=== PATIENT | male | born 1930 | race Caucasian/White ===

== ENCOUNTER 2018-04-21 06:35 | Observation (INO) ==
[2018-04-21] MEDS ORDERED: SALINE FLUSH 10ml SYRINGE IVF PRN (07:08)
[2018-04-21] MEDS ORDERED: NS 1,000 ML IV ONE (07:08)
[2018-04-21] MEDS ORDERED: ORPHENADRINE 60 MG/2 ML INJECTION IV ONE (07:08)
[2018-04-21] MEDS ORDERED: DiltiaZEM 25 MG/5 ML INJECTION IVP ONE (07:08)
[2018-04-21] MEDS ORDERED: FentaNYL 250 MCG/5 ML INJECTION IVP ONE (07:08)
[2018-04-21] MEDS ORDERED: ONDANSETRON 4 MG/2 ML INJECTION IVP ONE (07:12)
--- NOTE | 2018-04-21 07:17 | Emergency Department Report ---
Back Pain HPI - General Chief Complaint: Back Pain/Injury Stated Complaint: lower back pain Time Seen by Provider: 04/21/18 07:07 - History of Present Illness HPI Narrative: 88-year-old gentleman presents mainly with back pain. Back pain began approximately 3 weeks ago when he fell. However he had no direct injury to the back, just strained it. He did see his primary care provider, had a CT and an MRI ordered. However he is not result yet. This morning he presents because his back is hurting, woke him out of a deep sleep. Rates it at 7 out of 10. Incidentally on initial eval it is discovered that he is in atrial fibrillation with RVR. On further questioning, he does have a history of atrial fibrillation. He does take metoprolol for rate control. He has not missed any doses. No acute shortness of breath or chest pain. - Related Data Home Medications Medication Instructions Recorded Confirmed Acetaminophen [Acetaminophen Extra 500 mg PO 04/08/18 04/21/18 Strength] Amcinonide 1 applicatio TP DAILY PRN 04/08/18 04/21/18 Aspirin [Adult Aspirin] 81 mg PO DAILY 04/08/18 04/21/18 Cetirizine HCl [Zyrtec] 10 mg PO DAILY 04/08/18 04/21/18 EPINEPHrine Pen [Epipen] 0.3 mg IM PRN PRN 04/08/18 04/21/18 Fiber 8 gm PO 04/08/18 04/21/18 Fluticasone Nasal [place] [Flonase] 1 spray EA NOSTRIL DAILY 04/08/18 04/21/18 Lutein 5 mg PO BID 04/08/18 04/21/18 Metoprolol Tartrate 25 mg PO 04/08/18 04/21/18 Metoprolol Tartrate 50 mg PO QAM 04/08/18 04/21/18 Nitroglycerin 0.4 mg PO Q5MIN3 PRN 04/08/18 04/21/18 Olopatadine 0.1% Eye Drops-Bid 1 drop EACH EYE PRN PRN 04/08/18 04/21/18 [Patanol] Omeprazole [Prilosec] 20 mg PO BID 04/08/18 04/21/18 Rivaroxaban [Xarelto] 20 mg PO DAILY 04/08/18 04/21/18 Previous Rx's Medication Instructions Recorded Hydrocodone/APAP 325 [[place] 1 tab PO Q6HR PRN #10 tab 04/08/18 5/325] Allergies Allergy/AdvReac Type Severity Reaction Status Date / Time ipratropium Allergy Unknown Verified 04/21/18 06:41 peanut Allergy Unknown Verified 04/21/18 06:41 nut - unspecified Allergy Verified 04/21/18 10:32 INSECT REPELLANT Allergy Unknown Uncoded 04/21/18 06:41 MINACRON Allergy Unknown Uncoded 04/21/18 06:41 succinylcholine chloride Allergy Unknown Uncoded 04/21/18 06:41 Review of Systems All systems: reviewed and negative except as stated PFSH Patient Stated Medical History Cataracts Yes Hearing Loss Yes: hearing aides Other HEENT Yes: wears glasses Cardiac Arrhythmia Yes: afib Hypertension Yes Pulmonary Embolism Yes Ulcer Yes Other GI Yes: hernia Other Hematologic Yes: onxarelto Cellulitis Yes: l [facility] Medical History (Last Reviewed 10/02/17 @ 15:40 by ANA Suh) Macular degeneration (Chronic Medical) GERD (gastroesophageal reflux disease) (Chronic Medical) Hyperlipidemia (Chronic Medical) Hypertension (Chronic Medical) Atrial fibrillation (Chronic Medical) Gastric ulcer (Chronic Medical) CAD (coronary artery disease) (Chronic Medical) Pulmonary embolism (Resolved Medical) Nasal polyps (Resolved Medical) Hernia (Resolved Medical) Herniated disc (Resolved Medical) Surgical History: *Herniated Disc Repair 1974. *Left Inguinal Hernia Repair 1975. *Endoscopic Sinus Surgery with polypectomy 1996. *Quadruple Coronary Bypass Surgery 1999. *Cholecystectomy 11/2011. *Right Cataract Removal 2011. *Left Cataract Removal 04/2012. *EGD x3 (07/2012, 07/2013, 07/2014). * Left eye Lasik surgery Family History: Family History (Last Reviewed 10/02/17 @ 15:39 by ANA Suh) Mother Heart disease Maternal Aunt Cancer of colon - Social History Smoking status: Former smoker second hand exposure: Yes Substance use type: does not use Alcohol intake: never Alcohol intake frequency: does not drink Physical Exam - Limitations Limitations: no limitations - General General appearance: alert - Normal Exams: Head:: Normocephalic without trauma Chest/Respirations:: Clear all patterson, with good airflow, and symmetry bilaterally Abdomen:: Bowel sounds positive, soft, non-tender, non-distended, no hepatosplenomegaly, masses or bruits noted Neurological:: Patient is alert, and oriented, cranial nerves, motor/sensory/ cerebellar, exams w/o gross deficits, to observation - Cardiovascular Cardiovascular exam: Present: tachycardia, irregular rhythm. Absent: normal rhythm - Back Exam Back exam: Present: tenderness (upper lumbar specifically over her spinous process as well as out right side paraspinal muscles.) Course Vital Signs Temperature 97.8 F 04/21/18 06:37 Pulse Rate 124 H 04/21/18 06:37 Respiratory Rate 16 04/21/18 06:37 Blood Pressure 99/58 04/21/18 06:37 Pulse Oximetry 97 04/21/18 06:37 Temperature 97.8 F 04/21/18 06:37 Pulse Rate 124 H 04/21/18 06:37 Respiratory Rate 16 04/21/18 06:37 Blood Pressure 99/58 04/21/18 06:37 Pulse Oximetry 97 04/21/18 06:37 Back Pain/Injury - MDM Narrative Medical decision making narrative: Patient presents with A. fib RVR. Peripheral IV placed and IV fluids started. 20 mg Cardizem given IV while labs are pending. Initial response to IV Cardizem was appropriate with rate dropping below 100. However I then began to slowly increase. CBC CMP return appropriate. EKG shows A. fib RVR. UA is negative. Chest x-ray is negative for any acute process. Patient given 60 mg Cardizem sustained release oral. Cardizem 60 mg oral did not control rate. Therefore Cardizem drip was initiated. CT spine was obtained and no progression of tumor was noted. 2 previous small spinal compression fractures on L1 and L2 are seen. Cardiology consultation and they requested hospitalist admit. I spoke with hospitalist who graciously agreed to admit the patient. Patient would ICU with Cardizem drip. - Differential Diagnosis Differential diagnosis: Likely: lumbar radiculopathy, strain of lumbar region - Medical Records Attestation: I reviewed the patient's medical records. - Lab Data Attestation: I reviewed the patient's lab results. Result diagrams: 04/21/18 07:15 04/21/18 07:15 - Radiology Data Attestation: I reviewed the patient's radiology results. - EKG Data EKG #1 EKG attestation: Yes: I reviewed and interpreted this EKG. EKG results narrative: 116 bpm Rate: tachycardia Rhythm: A.Fib, other (RVR) [place]/QRS: normal Interpretation: other (afib with rvr) Disposition Clinical Impression: Atrial fibrillation with RVR, Lumbar pain, Lumbar spine tumor Disposition: 02 To [facility] Acute Care Condition: Stable Prescriptions: No Action Aspirin [Adult Aspirin] 81 mg PO DAILY Acetaminophen [Acetaminophen Extra Strength] 500 mg PO HS Amcinonide 1 applicatio TP DAILY PRN PRN Reason: Prn Orders Nitroglycerin 0.4 mg PO Q5MIN3 PRN PRN Reason: Chest Pain EPINEPHrine Pen [Epipen] 0.3 mg IM PRN PRN PRN Reason: Allergic Reaction Fluticasone Nasal [place] [Flonase] 1 spray EA NOSTRIL DAILY Cetirizine HCl [Zyrtec] 10 mg PO DAILY Rivaroxaban [Xarelto] 20 mg PO DAILY Omeprazole [Prilosec] 20 mg PO BID Metoprolol Tartrate 25 mg PO HS Metoprolol Tartrate 50 mg PO QAM Lutein 5 mg PO BID Olopatadine 0.1% Eye Drops-Bid [Patanol] 1 drop EACH EYE PRN PRN PRN Reason: Prn Orders Fiber 8 gm PO HS Hydrocodone/APAP 5/325 [[place] 5/325] 1 tab PO Q6HR PRN #10 tab PRN Reason: Pain Referrals: Param Collins MD [Primary Care Provider] - Time of Disposition: 10:58 - Seen By: physician
[2018-04-21] MEDS ORDERED: FentaNYL 100 MCG/2 ML INJECTION IVP ONE (07:45)
--- NOTE | 2018-04-21 08:05 | XRay Report ---
INDICATION: afib PROCEDURE: CHEST 2-VIEWS UPRIGHT (PA & LAT) Encounter: Initial COMPARISON: November 29, 2015 FINDINGS: Lungs are stable without focal consolidative pneumonia. No pneumothorax or effusion. 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 Pulmonary vascularity appears normal. Impression: Stable chest without focal pneumonia or congestive failure. .
[2018-04-21] MEDS ORDERED: DiltiaZEM SR 60 MG CAPSULE (12 HR) PO ONE (08:33)
[2018-04-21] MEDS ORDERED: DiltiaZEM Drip 125 MG in NS 125 ML IV SCH (10:15)
[2018-04-21] MEDS ORDERED: Oxycodone/Acetaminophen 5/325 1 TAB PO ONE (10:19)
--- NOTE | 2018-04-21 11:03 | CT Scan Report ---
Indication: fall with back pain PROCEDURE: CT lumbar spine wo con: Encounter: Initial Comparison: MRI lumbar spine and CT lumbar spine dated April 08, 2018 Technique: Axial noncontrast CT imaging of the lumbar spine was performed with coronal and sagittal two-dimensional reformats. Automated Exposure Control and Iterative Reconstruction dose reducing techniques were utilized. FINDINGS: The alignment of the lumbar spine is stable. There are subtle superior endplate fractures of the L1 and L2 vertebra that have minimally worsened since the prior study. These are visible in retrospect as linear areas of edema on the fluid sensitive sequences of the prior MRI. There is very minimal height loss, less than 5%. There are pre-existing chronic inferior endplate deformities with multiple Schmorl's nodes seen at L1-L3. No additional acute fracture seen. Degenerative and postoperative changes in the posterior elements of L4-S1. Moderate degenerative disk and facet disease is better evaluated on the recent MRI studies. Impression: Minimal interval worsening in the existing L1 and L2 superior endplate fractures. .
--- NOTE | 2018-04-21 11:29 | History & Physical Report ---
History of Present Illness Date: 04/21/18 Chief complaint: back pain, afib with RVR HPI: This is an 88-year-old pt of Dr. Collins who presented to ER with c/o of back pain. Back pain began approximately 3 weeks ago when he fell. He did see his primary care provider, had a CT and an MRI ordered but has not heard results of this testing. Dr Lopez reviewed the results with the patient in the ER. ( MRI: Enhancement within the 8 mm intradural extramedullary lesion at the L2 level. Differential considerations include myxopapillary ependymoma, schwannoma, meningioma and less likely drop metastasis.) This morning he presents because his back is hurting, woke him out of a deep sleep. Rates it at 7 out of 10. He is currently taking Millbrae. He states he hasn 't taken any medications this morning. He is averaging approximately 3 Millbrae a day for his pain. Incidentally on initial eval in the ER, pt was found to be in atrial fibrillation with RVR. He does have a history of atrial fibrillation. He takes metoprolol for rate control. He has not missed any doses. No acute shortness of breath or chest pain. Is on Xarelto. Review of Systems All systems PM: 10-point ROS was reviewed, no additional remarkable complaints except (back pain, decreased appetite and occ upset stomach) Past Medical History Medical History: Medical History (Last Reviewed 10/02/17 @ 15:40 by ANA Suh) Macular degeneration (Chronic) GERD (gastroesophageal reflux disease) (Chronic) Hyperlipidemia (Chronic) Hypertension (Chronic) Atrial fibrillation (Chronic) Gastric ulcer (Chronic) CAD (coronary artery disease) (Chronic) Pulmonary embolism (Resolved) Nasal polyps (Resolved) Hernia (Resolved) Herniated disc (Resolved) Surgical History: *Herniated Disc Repair 1974. *Left Inguinal Hernia Repair 1975. *Endoscopic Sinus Surgery with polypectomy 1996. *Quadruple Coronary Bypass Surgery 1999. *Cholecystectomy 11/2011. *Right Cataract Removal 2011. *Left Cataract Removal 04/2012. *EGD x3 (07/2012, 07/2013, 07/2014). * Left eye Lasik surgery Family History: Family History Mother Heart disease Maternal Aunt Cancer of colon Father Arteriosclerosis Family History: As Above - Social History Smoking status: Former smoker (quit in 66) Substance use type: does not use Alcohol intake frequency: does not drink Household members: none Current occupational status: retired Current residence: Apartment/Private Home Social history: PCP - Dr. Dennis Cerda- Dr Rodríguez Pt has a girlfriend who he refers to as his "friend." She is a volunteer here at the hospital. DPOA-H is Jonathan Turner (son, who is a timber killer) Medications Home Medications Medication Instructions Recorded Confirmed Type Acetaminophen [Acetaminophen Extra 500 mg PO HS 04/08/18 04/21/18 History Strength] Amcinonide 1 applicatio TP DAILY PRN 04/08/18 04/21/18 History Aspirin [Adult Aspirin] 81 mg PO DAILY 04/08/18 04/21/18 History Cetirizine HCl [Zyrtec] 10 mg PO DAILY 04/08/18 04/21/18 History EPINEPHrine Pen [Epipen] 0.3 mg IM PRN PRN 04/08/18 04/21/18 History Fiber 8 gm PO HS 04/08/18 04/21/18 History Fluticasone Nasal [place] [Flonase] 1 spray EA NOSTRIL DAILY 04/08/18 04/21/18 History Hydrocodone/APAP 5/325 [[place] 1 tab PO Q6HR PRN #10 tab 04/08/18 04/21/18 Rx 5/325] Lutein 5 mg PO BID 04/08/18 04/21/18 History Metoprolol Tartrate 25 mg PO HS 04/08/18 04/21/18 History Metoprolol Tartrate 50 mg PO QAM 04/08/18 04/21/18 History Nitroglycerin 0.4 mg PO Q5MIN3 PRN 04/08/18 04/21/18 History Olopatadine 0.1% Eye Drops-Bid 1 drop EACH EYE PRN PRN 04/08/18 04/21/18 History [Patanol] Omeprazole [Prilosec] 20 mg PO BID 04/08/18 04/21/18 History Rivaroxaban [Xarelto] 20 mg PO DAILY 04/08/18 04/21/18 History Allergies Allergy/AdvReac Type Severity Reaction Status Date / Time ipratropium Allergy Unknown Verified 04/21/18 06:41 peanut Allergy Unknown Verified 04/21/18 06:41 nut - unspecified Allergy Verified 04/21/18 10:32 INSECT REPELLANT Allergy Unknown Uncoded 04/21/18 06:41 MINACRON Allergy Unknown Uncoded 04/21/18 06:41 succinylcholine chloride Allergy Unknown Uncoded 04/21/18 06:41 Exam Vital Signs: Temperature 98.8 F 04/21/18 10:15 Pulse Rate 121 H 04/21/18 10:15 Respiratory Rate 16 04/21/18 10:22 Blood Pressure 113/92 H 04/21/18 10:15 Pulse Oximetry 96 04/21/18 10:15 Height/Weight/BMI: Height 1.78 m Weight 78 kg - Constitutional Present: no acute distress, well nourished, well developed - Routine HEENT Exam Head: Present: normocephalic, atraumatic Eye: Present: EOMI, PERRL ENT: Present: mucous membranes moist, oropharynx clear - Routine Neck Exam Present: supple. Absent: lymphadenopathy, thyromegaly - Routine Respiratory Exam Present: CTA bilaterally. Absent: wheezes - Routine Cardiovascular Exam Present: no murmur, tachycardia, irregularly irregular - Routine Abdominal Exam Present: soft, normoactive bowel sounds. Absent: tenderness, distended - Routine Extremities Exam Present: edema (trace pedal), normal capillary refill - Routine Skin Exam Present: dry, warm - Routine Neurological Exam Present: alert, oriented X3, CN II-XII intact - Routine Psychiatric Exam Present: normal affect, cooperative Results - Labs CBC & Chem 7: 04/21/18 07:15 04/21/18 07:15 - Imaging and Cardiology lumbar spine MRI Additional comments: Date of Exam: 04/17/18 Indication: M54.5 low back pain; M48.061; R93.8 PROCEDURE: MR lumbar spine w con: Comparison: MRI lumbar spine dated April 08, 2018 Findings: The intradural extramedullary nodule of concern on the prior study shows avid postcontrast enhancement. There is also degenerative enhancement seen in the L1 and L2 vertebral bodies superiorly. No other enhancing masses identified. Impression: Enhancement within the 8 mm intradural extramedullary lesion at the L2 level. Differential considerations include myxopapillary ependymoma, schwannoma, meningioma and less likely drop metastasis. lumbar spine CT Additional comments: Date of Exam: 04/21/18 Indication: fall with back pain PROCEDURE: CT lumbar spine wo con: Comparison: MRI lumbar spine and CT lumbar spine dated April 08, 2018 FINDINGS: The alignment of the lumbar spine is stable. There are subtle superior endplate fractures of the L1 and L2 vertebra that have minimally worsened since the prior study. These are visible in retrospect as linear areas of edema on the fluid sensitive sequences of the prior MRI. There is very minimal height loss, less than 5%. There are pre-existing chronic inferior endplate deformities with multiple Schmorl's nodes seen at L1-L3. No additional acute fracture seen. Degenerative and postoperative changes in the posterior elements of L4-S1. Moderate degenerative disk and facet disease is better evaluated on the recent MRI studies. Impression: Minimal interval worsening in the existing L1 and L2 superior endplate fractures. Chest x-ray Additional comments: Date of Exam: 04/21/18 INDICATION: afib PROCEDURE: CHEST 2-VIEWS UPRIGHT (PA & LAT) FINDINGS: Lungs are stable without focal consolidative pneumonia. No pneumothorax or effusion. 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 Pulmonary vascularity appears normal. Impression: Stable chest without focal pneumonia or congestive failure. 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 fib with RVR.. Consult Dr. Gonzales for A. fib with RVR. Imaging studies including MRI and CT scans of the lumbar spine are reviewed. Pain control as needed for his back pain. Tylenol, Millbrae, and calcitonin nasal spray for lumbar compression fracture pain. Bowel motivation ordered given narcotic usage. Dr. Lopez did discuss his case with radiology who confirmed that patient would not be a candidate for vertebroplasty at this time. Currently on a [employer] drip. Further orders per cardiology regarding his A. fib with RVR. Xarelto for A. fib/DVT prophylaxis Patient requests DO NOT RESUSCITATE CODE STATUS PCP-Dr. Collins Patient's DPOA-H, Jonathan Turner, DPOA-H, rec he be notified prior to a type of nonemergent intervention. 04/21/2018-4:30 PM-I examined the patient independently. I reviewed this chart, the patient history, and the DIRECTOR RISK's/PA's documented findings as above. We discussed and formulated the assessment and plan as above with the additions below.-Dr. Aguirre The patient was seen in CCU accompanied by his friend. He stated that about a week and a half ago he fell onto his bottom and was having pain in the center of his low back. He was started on some narcotics. He then underwent CT lumbar spine and then MR I lumbar spine with results as above. This morning he woke up with pain in his left abdomen radiating through to the left low back. He stated that this pain was a 9 on a scale of 1-10. He states that this pain in his abdomen going through to his back is in a different location than his earlier back pain which was more central. He came into the emergency room. He states he was given pain medication and his pain is a little better but he is describing now is a 7 or 8. He has not had a bowel movement in the past 4-5 days. He denies feeling nauseated or vomiting, but states he does not have any appetite. In the emergency room today, he was found to be in A. fib with RVR and was started on Cardizem drip. He is chronically on aspirin and Xarelto. He is also on metoprolol chronically. On exam he is mildly drowsy. He seems a little slow to answer questions. Oropharynx is moist. Neck is supple. Chest is clear to auscultation posteriorly. Cardiovascular reveals an irregularly irregular rhythm with tachycardic rate. Abdomen is fairly firm throughout. He has some tympany. Bowel sounds are hypoactive but present. He has tenderness throughout. No guarding. Extremities are free of edema. Afebrile, blood pressure 142/90, heart rate 129, O2 sat 97% on room air TSH and troponin are normal. Comprehensive metabolic is normal other than glucose of 112 and alkaline phosphatase of 186. CBC is essentially normal with white count of 8.5 and neutrophils of 85% Chest x-ray today shows lungs are stable without focal consolidative pneumonia. No pneumothorax or effusion. Mediastinal contours remained widened with a large posterior diaphragmatic defect and intrathoracic stomach. There is also colon herniated into the chest. Prior CABG. Pulmonary vascularity appears normal. Impression Abdominal pain with chest x-ray showing intrathoracic stomach and colon A. 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 Andrews. We'll obtain a CT abdomen and pelvis with oral and IV contrast. I'll make the patient nothing by mouth for now. We'll hold Xarelto for now. Await results of CT scan. Dr. Gonzales was consulted regarding A. fib with RVR. He is currently on Cardizem drip without much change in heart rate. Cardiology is considering increasing metoprolol. - Physician Narrative Narrative: Date: 04/21/18 Time: 1126 Hospital Course Summary Disclaimer: The visit summary below is not to be considered part of the above Progress Note. Hospital Course: 04/21/18 Admit to CCU for close monitoring and observation for his A. fib with RVR.. Consult Dr. Gonzales for A. fib with RVR. Imaging studies including MRI and CT scans of the lumbar spine are reviewed. Pain control as needed for his back pain. Tylenol, Millbrae, and calcitonin nasal spray for lumbar compression fracture pain. Bowel motivation ordered given narcotic usage. Dr. Lopez did discuss his case with radiology who confirmed that patient would not be a candidate for vertebroplasty at this time. Currently on a Cardizem drip. Further orders per cardiology regarding his A. fib with RVR. Xarelto for A. fib/DVT prophylaxis Patient requests DO NOT RESUSCITATE CODE STATUS PCP-Dr. Collins Patient's DPOA-H, Jonathan Turner, DPOA-H, rec he be notified prior to a type of nonemergent intervention.
[2018-04-21 11:39] VITALS: BMI 24.0
[2018-04-21] MEDS ORDERED: HYDROCODONE/APAP 5mg/325mg TABLET PO PRN ×2 (13:10→15:23)
[2018-04-21] MEDS ORDERED: ACETAMINOPHEN 325 MG TABLET PO PRN (13:18)
[2018-04-21] MEDS ORDERED: NITROGLYCERIN 0.4 MG SUBLINGUAL TABLET SL PRN (15:23)
[2018-04-21] MEDS ORDERED: OLOPATADINE 0.1% EYE DROPS (BID) 5ml EACH EYE PRN (15:23)
[2018-04-21] MEDS ORDERED: ONDANSETRON 4 MG/2 ML INJECTION IVP PRN ×2 (16:56→16:58)
[2018-04-21] MEDS ORDERED: METOCLOPRAMIDE 10mg/2ml INJECTION IVP PRN ×2 (16:56→16:58)
[2018-04-21] MEDS ORDERED: MORPHINE SULFATE 2mg INJECTION IVP PRN ×2 (16:57→16:58)
[2018-04-21] MEDS: CALCITONIN NASAL SPRAY 3.7ml NS SCH (17:09)
[2018-04-21] MEDS ORDERED: METOPROLOL 5mg/5ml INJECTION IVP PRN (17:29)
[2018-04-21] MEDS ORDERED: METOPROLOL 5mg/5ml INJECTION IVP SCH (17:30)
[2018-04-21] MEDS ORDERED: IOHEXOL 300mg/ml 100ml INJECTION ONE (17:32)
[2018-04-21] MEDS ORDERED: SALINE FLUSH 10ml SYRINGE ONE (17:32)
--- NOTE | 2018-04-21 17:57 | General Surgery Consult Note ---
Consult date: 04/21/18 Attending Physician: Cyndi Aguirre MD [facility] Patient Stated Medical History Cataracts Yes Hearing Loss Yes: hearing aides Macular Degeneration Yes Other HEENT Yes: wears glasses Cardiac Arrhythmia Yes: afib Hypertension Yes Pulmonary Embolism Yes Ulcer Yes Other GI Yes: hernia Other Hematologic Yes: on xarelto Cellulitis Yes: l [facility] Medical History (Last Reviewed 10/02/17 @ 15:40 by ANA Suh) Macular degeneration (Chronic Medical) GERD (gastroesophageal reflux disease) (Chronic Medical) Hyperlipidemia (Chronic Medical) Hypertension (Chronic Medical) Atrial fibrillation (Chronic Medical) Gastric ulcer (Chronic Medical) CAD (coronary artery disease) (Chronic Medical) Pulmonary embolism (Resolved Medical) Nasal polyps (Resolved Medical) Hernia (Resolved Medical) Herniated disc (Resolved Medical) Surgical History: *Herniated Disc Repair 1974. *Left Inguinal Hernia Repair 1975. *Endoscopic Sinus Surgery with polypectomy 1996. *Quadruple Coronary Bypass Surgery 1999. *Cholecystectomy 12/05/2011 Darryl. *Right Cataract Removal 03/2012. *Left Cataract Removal 04/2012. *EGD x3 (07/2012, 07/2013, ). *Left eye Lasik surgery Family History: Family History (Last Reviewed 10/02/17 @ 15:39 by ANA Suh) Mother Heart disease Maternal Aunt Cancer of colon - Social History Smoking status: Former smoker (quit in 66) second hand exposure: Yes Substance use type: does not use Alcohol intake: never Alcohol intake frequency: does not drink Household members: none Current occupational status: retired Current residence: Apartment/Private Home Medications Home Medications Medication Instructions Recorded Confirmed Type Acetaminophen [Acetaminophen Extra 500 mg PO 04/08/18 04/21/18 History Strength] Amcinonide 1 applicatio TP DAILY PRN 04/08/18 04/21/18 History Aspirin [Adult Aspirin] 81 mg PO DAILY 04/08/18 04/21/18 History Cetirizine HCl [Zyrtec] 10 mg PO DAILY 04/08/18 04/21/18 History EPINEPHrine Pen [Epipen] 0.3 mg IM PRN PRN 04/08/18 04/21/18 History Fiber 8 gm PO 04/08/18 04/21/18 History Fluticasone Nasal [place] [Flonase] 1 spray EA NOSTRIL DAILY 04/08/18 04/21/18 History Hydrocodone/APAP 5/325 [[place] 1 tab PO Q6HR PRN #10 tab 04/08/18 04/21/18 Rx 5/325] Lutein 5 mg PO BID 04/08/18 04/21/18 History Metoprolol Tartrate 25 mg PO HS 04/08/18 04/21/18 History Metoprolol Tartrate 50 mg PO QAM 04/08/18 04/21/18 History Nitroglycerin 0.4 mg PO Q5MIN3 PRN 04/08/18 04/21/18 History Olopatadine 0.1% Eye Drops-Bid 1 drop EACH EYE PRN PRN 04/08/18 04/21/18 History [Patanol] Omeprazole [Prilosec] 20 mg PO BID 04/08/18 04/21/18 History Rivaroxaban [Xarelto] 20 mg PO DAILY 04/08/18 04/21/18 History Allergies Allergy/AdvReac Type Severity Reaction Status Date / Time ipratropium Allergy Unknown Verified 04/21/18 06:41 peanut Allergy Unknown Verified 04/21/18 06:41 nut - unspecified Allergy Verified 04/21/18 10:32 INSECT REPELLANT Allergy Unknown Uncoded 04/21/18 06:41 MINACRON Allergy Unknown Uncoded 04/21/18 06:41 succinylcholine chloride Allergy Unknown Uncoded 04/21/18 06:41 Review of Systems 10-point ROS: negative except for HPI and the following: - Eyes/Ears/Nose/Throat Ear Nose Throat: Present: hearing problems (has hearing aids) - Cardiovascular Cardiovascular: Present: palpitations - Musculoskeletal Musculoskeletal: Present: back pain, joint pain - Hematologic/Lymphatic Hematologic/Lymphatic: Present: easy bruising, use of blood thinners - Vital Signs Last Vital Signs Temp 99.0 F 04/21/18 16:00 Pulse 124 H 04/21/18 16:00 Resp 18 04/21/18 16:00 BP 134/81 04/21/18 16:00 Pulse Ox 95 04/21/18 16:00 - Laboratory Result Diagrams: 04/21/18 07:15 04/21/18 07:15 General Surgery Results - Results Labs: 04/21/18 07:15 04/21/18 07:15
--- NOTE | 2018-04-21 18:15 | Echocardiogram ---
DATE OF PROCEDURE April 21, 2018 This is a two-dimensional echo with spectral Doppler, color-flow and M-mode. It was obtained in a patient with atrial fibrillation. Left atrium is dilated. Left ventricular end-diastolic dimension is normal. Left ventricular wall thickness is normal. LV systolic function is normal with ejection fraction of about 60%. Right atrium is dilated. Right ventricle is normal. Aortic root dimension is normal. Mitral valve is morphologically normal with mild mitral regurgitation. Aortic valve shows fibrocalcific changes with no stenosis. Mild aortic insufficiency is present. Tricuspid valve shows moderate tricuspid regurgitation with moderate pulmonary hypertension with estimated pulmonary artery systolic pressure of 50. Pulmonary valve shows trace of pulmonary insufficiency. There is no pericardial effusion. IMPRESSION 1. Biatrial dilation. 2. Normal LV systolic function with ejection fraction of about 60%. 3. Mild mitral regurgitation. 4. Aortic sclerosis with mild aortic insufficiency. 5. Moderate tricuspid regurgitation with moderate pulmonary hypertension with estimated pulmonary artery systolic pressure of 50. 6. Trace of pulmonary insufficiency. MTDD
--- NOTE | 2018-04-21 18:51 | Cardiology Consult Note ---
<Beverly Patten - Last Filed: 04/21/18 18:47> History of Present Illness Consult date: 04/21/18 Requesting physician: Cyndi Aguirre Consult reason: atrial fibrillation Chief complaint: abdominal pain History of present illness: Pt presented to the [facility] [place] [place] today after awakening with acute onset abdominal pain radiating to his back. He was subsequently found to be in AFib RVR rate 120 's. He was given a cardizem bolus and started on a cardizem gtt. He was admitted under hospital service for abdominal and back pain. He has known AFib, persistent Afib per his PCP office. He is currently on Xarelto 20mg daily and metoprolol 50mg AM and 25mg PM. He has a hx of CAD with CABG 12 years ago. His rate continues in the 120's on tele in AFIB. He denies chest pain, dyspnea, near syncope or increased exertional fatigue. Review of Systems All systems PM: 10-point ROS was reviewed, no additional remarkable complaints except - Constitutional Constitutional: Absent: fatigue - EENMT Balance: Absent: vertigo - Cardiovascular Cardiovascular: Absent: chest pain, palpitations, dyspnea on exertion, edema Vascular: Absent: pedal edema - Respiratory Respiratory: Absent: cough, dyspnea - Gastrointestinal Gastrointestinal: Present: abdominal pain PFSH Patient Stated Medical History Cataracts Yes Hearing Loss Yes: hearing aides Macular Degeneration Yes Other HEENT Yes: wears glasses Cardiac Arrhythmia Yes: afib Hypertension Yes Pulmonary Embolism Yes Ulcer Yes Other GI Yes: hernia Other Hematologic Yes: on xarelto Cellulitis Yes: l trunk [facility] Medical History (Last Reviewed 10/02/17 @ 15:40 by ANA Suh) Macular degeneration (Chronic Medical) GERD (gastroesophageal reflux disease) (Chronic Medical) Hyperlipidemia (Chronic Medical) Hypertension (Chronic Medical) Atrial fibrillation (Chronic Medical) Gastric ulcer (Chronic Medical) CAD (coronary artery disease) (Chronic Medical) Pulmonary embolism (Resolved Medical) Nasal polyps (Resolved Medical) Hernia (Resolved Medical) Herniated disc (Resolved Medical) Surgical History: *Herniated Disc Repair 1974. *Left Inguinal Hernia Repair 1975. *Endoscopic Sinus Surgery with polypectomy 1996. *Quadruple Coronary Bypass Surgery 1999. *Cholecystectomy 12/05/2011 Darryl. *Right Cataract Removal 03/2012. *Left Cataract Removal 04/2012. *EGD x3 (07/2012, 07/2013, ). *Left eye Lasik surgery Family History: Family History (Last Reviewed 10/02/17 @ 15:39 by ANA Suh) Mother Heart disease Maternal Aunt Cancer of colon - Social History Smoking status: Former smoker (quit in 66) second hand exposure: Yes Substance use type: does not use Alcohol intake: never Alcohol intake frequency: does not drink Household members: none Current occupational status: retired Current residence: Apartment/Private Home Medications Home Medications Medication Instructions Recorded Confirmed Type Acetaminophen [Acetaminophen Extra 500 mg PO HS 04/08/18 04/21/18 History Strength] Amcinonide 1 applicatio TP DAILY PRN 04/08/18 04/21/18 History Aspirin [Adult Aspirin] 81 mg PO DAILY 04/08/18 04/21/18 History Cetirizine HCl [Zyrtec] 10 mg PO DAILY 04/08/18 04/21/18 History EPINEPHrine Pen [Epipen] 0.3 mg IM PRN PRN 04/08/18 04/21/18 History Fiber 8 gm PO HS 04/08/18 04/21/18 History Fluticasone Nasal [place] [Flonase] 1 spray EA NOSTRIL DAILY 04/08/18 04/21/18 History Hydrocodone/APAP 5/325 [[place] 1 tab PO Q6HR PRN #10 tab 04/08/18 04/21/18 Rx 5/325] Lutein 5 mg PO BID 04/08/18 04/21/18 History Nitroglycerin 0.4 mg PO Q5MIN3 PRN 04/08/18 04/21/18 History Olopatadine 0.1% Eye Drops-Bid 1 drop EACH EYE PRN PRN 04/08/18 04/21/18 History [Patanol] Omeprazole [Prilosec] 20 mg PO BID 04/08/18 04/21/18 History Rivaroxaban [Xarelto] 20 mg PO DAILY 04/08/18 04/21/18 History Metoprolol Tartrate [Lopressor] 50 mg PO HS tab 04/22/18 Rx Metoprolol Tartrate [Lopressor] 100 mg PO WB tab 04/22/18 Rx PEG 3350 17gm PACKET [Miralax] 17 gm PO DAILY packet 04/22/18 Rx Allergies Allergy/AdvReac Type Severity Reaction Status Date / Time ipratropium Allergy Unknown Verified 04/21/18 06:41 peanut Allergy Unknown Verified 04/21/18 06:41 nut - unspecified Allergy Verified 04/21/18 10:32 INSECT REPELLANT Allergy Unknown Uncoded 04/21/18 06:41 MINACRON Allergy Unknown Uncoded 04/21/18 06:41 succinylcholine chloride Allergy Unknown Uncoded 04/21/18 06:41 Exam Vital signs: Temperature 99.0 F 04/21/18 16:00 Pulse Rate 109 H 04/21/18 18:15 Respiratory Rate 18 04/21/18 18:15 Blood Pressure 105/66 04/21/18 18:15 Pulse Oximetry 91 04/21/18 18:15 - Constitutional no acute distress - Routine HEENT Exam Head: Present: normocephalic, atraumatic Eye: Present: PERRL ENT: Present: mucous membranes moist - Routine Neck Exam Absent: JVD, carotid bruit - Routine Respiratory Exam Present: CTA bilaterally - Routine Cardiovascular Exam Present: tachycardia, irregular rhythm - Routine Abdominal Exam Present: soft, normoactive bowel sounds - Routine Extremities Exam Present: no edema - Routine Skin Exam Present: intact - Routine Neurological Exam Present: alert, oriented X3, CN II-XII intact - Routine Psychiatric Exam Present: normal affect, normal thought process, cooperative Results 04/21/18 07:15 04/21/18 07:15 Cardiac Enzymes 04/21/18 04/21/18 Range/Units 07:15 07:15 AST 24 (17-59) U/L Troponin I < 0.012 (0-0.12) ng/ml CBC 04/21/18 Range/Units 07:15 WBC 8.5 (4.5-11.0) T/MM3 RBC 4.90 (4.50-5.90) M/MM3 Hgb 15.2 (13.5-17.5) GM/DL Hct 45.7 (41-53) % Plt Count 188 (130-400) T/MM3 Neut # (Auto) 7.2 (1.8-7.7) T/MM3 Lymph # (Auto) 0.4 L (1-4.8) T/MM3 Schley # (Auto) 0.9 H (0-0.8) T/MM3 Eos # (Auto) 0.0 (0-0.5) T/MM3 Baso # (Auto) 0.0 (0-0.2) T/MM3 Comprehensive Metabolic Panel 04/21/18 Range/Units 07:15 Sodium 142 (136-146) MEQ/L Potassium 4.0 (3.6-5) MEQ/L Chloride 106 (98-107) MEQ/L Carbon Dioxide 25 (22-30) MEQ/L BUN 13.0 (9-20) MG/DL Creatinine 0.8 (0.8-1.5) mg/dL Glucose 112 H (75-110) MG/DL Calcium 8.7 (8.4-10.2) MG/DL AST 24 (17-59) U/L ALT 17 (1-50) U/L Alkaline Phosphatase 186 H (38-126) U/L Total Protein 6.3 (6.3-8.2) g/dL Albumin 3.7 (3.5-5.0) g/dL Intake and Output 04/21/18 04/21/18 04/21/18 06:59 14:59 22:59 Intake Total 1018.833 / 1018.833 755 / 755 Balance 1018.833 / 1018.833 755 / 755 Intake: IV 1018.833 / 1018.833 35 / 35 DiltiaZEM Drip 125 mg In Ns 125 18.833 / 18.833 35 / 35 ml @ 15 mls/hr IV .Q8H20M BRITTNI Rx#:[id number] Ns 1,000 ml @ 1000 mls/hr IV . 1000 / 1000 Q1H ONE Rx#:[id number] Oral 720 / 720 Other: Weight 78 kg 78 kg Patient Weight 04/22/18 06:59 Weight 78 kg - Imaging and Cardiology Imaging & Cardiology Narrative: 04/21/18 18:54 ECHO 1. Biatrial dilation. 2. Normal LV systolic function with ejection fraction of about 60%. 3. Mild mitral regurgitation. 4. Aortic sclerosis with mild aortic insufficiency. 5. Moderate tricuspid regurgitation with moderate pulmonary hypertension with estimated pulmonary artery systolic pressure of 50. 6. Trace of pulmonary insufficiency. - EKG Interpretation EKG shows: atrial fibrillation EKG interpretations - EKG EKG shows: atrial fibrillation Assessment and Plan - Assessment and Plan (1) Atrial fibrillation with RVR Status: Acute (2) Hyperlipidemia Status: Chronic (3) Hypertension Status: Chronic (4) CAD (coronary artery disease) Status: Chronic - Assessment and Plan Pt likely in chronic afib given elevated Pa pressures and biatrial dilation on today's echo. Continue anticoagulation, Xarelto 20mg daily Will trend troponin given CAD hx, restart home statin. Plan to rate control with bolus of metoprolol 100mg now and increase metoprolol tartrate to 100mg bid. Continue cardizem gtt, titrate to keep HR <100. Monitor tele. Hospital Course Summary Disclaimer: The visit summary below is not to be considered part of the above Progress Note. Hospital Course: 04/21/18 Admit to CCU for close monitoring and observation for his A. fib with RVR.. Consult Dr. Gonzales for A. fib with RVR. Imaging studies including MRI and CT scans of the lumbar spine are reviewed. Pain control as needed for his back pain. Tylenol, [place], and calcitonin nasal spray for lumbar compression fracture pain. Bowel motivation ordered given narcotic usage. Dr. Lopez did discuss his case with radiology who confirmed that patient would not be a candidate for vertebroplasty at this time. Currently on a Cardizem drip. Further orders per cardiology regarding his A. fib with RVR. Xarelto for A. fib/DVT prophylaxis Patient requests DO NOT RESUSCITATE CODE STATUS PCP-Dr. Collins Patient's DPOA-H, Jonathan Turner, DPOA-H, rec he be notified prior to a type of nonemergent intervention. <Florencio Gonzales - Last Filed: 04/30/18 13:44> [facility] Patient Stated Medical History Cataracts Yes Hearing Loss Yes: hearing aides Macular Degeneration Yes Other HEENT Yes: wears glasses Cardiac Arrhythmia Yes: afib Hypertension Yes Pulmonary Embolism Yes Ulcer Yes Other GI Yes: hernia Other Hematologic Yes: on xarelto Cellulitis Yes: l trunk Clinic Medical History (Last Reviewed 10/02/17 @ 15:40 by ANA Suh) Macular degeneration (Chronic Medical) GERD (gastroesophageal reflux disease) (Chronic Medical) Hyperlipidemia (Chronic Medical) Hypertension (Chronic Medical) Atrial fibrillation (Chronic Medical) Gastric ulcer (Chronic Medical) CAD (coronary artery disease) (Chronic Medical) Pulmonary embolism (Resolved Medical) Nasal polyps (Resolved Medical) Hernia (Resolved Medical) Herniated disc (Resolved Medical) Family History: Family History (Last Reviewed 10/02/17 @ 15:39 by ANA Suh) Mother Heart disease Maternal Aunt Cancer of colon Exam Vital signs: Temperature 98.1 F 04/22/18 10:00 Pulse Rate 96 04/22/18 18:00 Respiratory Rate 18 04/22/18 18:00 Blood Pressure 136/88 04/22/18 18:00 Pulse Oximetry 97 04/22/18 18:00 Results 04/22/18 01:50 04/22/18 01:50 Assessment and Plan - Attestation Attestation Narrative: 04/30/18 13:44 Recommendation After examining the patient I agree with the above assessment. I am involved in the formulation of the patient's plan of care. - Assessment and Plan (1) CAD (coronary artery disease) Status: Chronic (2) Hypertension Status: Chronic (3) Hyperlipidemia Status: Chronic (4) Atrial fibrillation with RVR Status: Acute Hospital Course Summary Disclaimer: The visit summary below is not to be considered part of the above Progress Note.
--- NOTE | 2018-04-21 20:02 | Consultation ---
DATE OF CONSULTATION 04/21/2018 FINDINGS Mr. Turner is an 88-year-old gentleman whom I was asked to see today as a result of his history for abdominal pain and history for abnormal chest x-ray revealing a large hiatal hernia/intrathoracic stomach. Some of the information this evening was obtained from the patient during the interview process as well as obtaining some information from his chart. The patient was somewhat hard-of- hearing but was a good historian. He informs me that he has been experiencing a component of abdominal pain over the course of the last several months. The patient states the pain is typically within his lower abdomen. Patient states the pain radiates in towards his back. Patient states that the pain is made worse when he is sitting up. Pain is somewhat better by lying down. Upon questioning the patient he states that this evening he is not having any significant pain. Earlier today apparently the patient was experiencing a moderate amount of discomfort. He has not had any vomiting but states at times he has been somewhat nauseated. He was found today to be in atrial fibrillation with a rapid ventricular rate and was subsequently added to the hospital for further care. Additionally, upon reviewing the patient's chart he apparently has fallen about three weeks ago resulting in some lumbar fractures. PAST MEDICAL HISTORY, PAST SURGICAL HISTORY, MEDICATIONS, ALLERGIES, SOCIAL HISTORY, FAMILY HISTORY, REVIEW OF SYSTEMS Performed by my nurse practitioner, Amando rAora APRN. PHYSICAL EXAMINATION GENERAL: Mr. Turner is an 88-year-old male who this evening did not appear to be in acute distress. He was quite conversant. VITAL SIGNS: Temperature 99.0, pulse 109, respirations 18, blood pressure 105/ 66, SAO2 91% room air. HEENT: Normocephalic. Pupils are equally round and react to light and accommodation. CHEST: Clear to auscultation bilaterally. HEART: The patient was slightly tachycardic. I could not appreciate a murmur. Upon auscultation of the heart one could hear bowel sounds with some borborygmi and "tinkles" being present. ABDOMEN: Soft, completely nontender this evening. He did not have any element of guarding or rebound upon palpation. I do not appreciate evidence for hepatosplenomegaly or other abnormal masses. EXTREMITIES: No clubbing, cyanosis, edema. NEUROLOGIC: Cranial nerves II-XII grossly intact. Patient without focal motor or sensory deficits. 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 CT scan of his abdomen and pelvis has been ordered and is pending at time a dictation. CBC was obtained and his white count was found to be normal at 8.5. Hemoglobin is 15.2. CMP was obtained and found to be without marked abnormalities. Alkaline phosphatase slightly elevated at 186. I reviewed a CT scan of the lumbar spine which revealed minimal interval worsening in the existing L1-L2 superior endplate fractures. ASSESSMENT 88-year-old gentleman with multiple medical comorbidities who presents with known lumbar fractures, lower abdominal pain, atrial fibrillation with rapid ventricular rate. The patient appears to be without an acute surgical process at this time. PLAN I had spoken earlier today with the hospitalist in regards to Mr. Turner. I had recommended that we go ahead obtain a CT scan of his abdomen and pelvis for further evaluation of his abdominal pain and reported intrathoracic stomach. As stated above, from a physical examination standpoint he did not appear to have an acute surgical process this evening. Will await his CT scan results and proceed accordingly. Although the patient may have a type IV paraesophageal hernia, given his advanced age and associated medical comorbidities I did not feel that he would be a good operative candidate for an elective repair of a paraesophageal hernia if indeed this is present. Will continue to follow the patient closely with serial abdominal examinations. NEIL
[2018-04-21] MEDS ORDERED: SENNOSIDES 8.6 MG TABLET PO SCH (21:00)
[2018-04-21] MEDS ORDERED: FIBER PO SCH (21:00)
[2018-04-21] MEDS ORDERED: ACETAMINOPHEN 500 MG TABLET PO SCH (21:00)
[2018-04-21] MEDS ORDERED: PSYLLIUM PACKET PO SCH (21:00)
[2018-04-21] MEDS: OMEPRAZOLE 20 MG CAPSULE PO SCH (21:24)
--- NOTE | 2018-04-22 08:25 | CT Scan Report ---
Indication: abd pain, intrathoracic stomach and colon on cxr PROCEDURE: CT abdomen pelvis w con: Encounter: Initial Comparison: None Technique: Axial CT images were performed through the abdomen and pelvis after the administration of intravenous contrast. Coronal and sagittal two-dimensional reformats. Automated Exposure Control and Iterative Reconstruction dose reducing techniques were utilized. Contrast: Omnipaque 300 100 mL Findings: Atelectasis in the lung bases with a small right effusion. 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 No definite evidence of volvulus. Heart is enlarged. Multiple liver cysts. Gallbladder is surgically absent. The spleen, pancreas and adrenal glands are within normal limits. Bilateral renal cysts are scattered arterial atherosclerotic plaque. Fat-containing left inguinal hernia extending into the scrotum. No evidence of a bowel obstruction. Bone windows show degenerative and postoperative changes in the spine. Chronic appearing T12, L1 and L2 mild compression fractures. Impression: Small pleural effusions, otherwise no acute disease process seen. There is a preliminary report by [facility]. .
[2018-04-22] MEDS ORDERED: FLUTICASONE NASAL SPRAY 50mcg EA NOSTRIL SCH (09:00)
[2018-04-22] MEDS ORDERED: CETIRIZINE 10 MG TABLET PO SCH (09:00)
[2018-04-22] MEDS ORDERED: ASPIRIN *EC* 81 MG TABLET PO SCH (09:00)
[2018-04-22 10:20] VITALS: TEMP 98.1
[2018-04-22] MEDS ORDERED: BISACODYL 10 MG SUPPOSITORY RECTALLY ONE (10:40)
[2018-04-22] MEDS ORDERED: POLYETHYL GLYCOL 3350 17gm PACKET PO SCH (10:45)
[2018-04-22] MEDS: CALCITONIN NASAL SPRAY 3.7ml NS SCH (11:03)
[2018-04-22] MEDS: OMEPRAZOLE 20 MG CAPSULE PO SCH (11:04)
--- NOTE | 2018-04-22 12:09 | Cardiology Progress Note ---
<Lety Mcconnell K - Last Filed: 04/22/18 16:04> Subjective Principal diagnosis: Chronic Atrial Fibrillation Interval history: Pt is awake, alert and oriented. He denies CP, palpitations, n/v, diaphoresis, soa or dizziness. He states he is feeling much better today. Staff reports patient had some episodes of significant hypotension in the night with SBP as low as 60. Pt denies any symptoms during these times. Exam Vital signs: Temperature 98.1 F 04/22/18 10:00 Pulse Rate 78 04/22/18 10:00 Respiratory Rate 20 04/22/18 10:00 Blood Pressure 106/65 04/22/18 10:00 Pulse Oximetry 94 04/22/18 10:00 Inpatient Medications: Generic Name Dose Route Start Last Admin Trade Name Freq PRN Reason Stop Dose Admin Acetaminophen 650 mg 04/21/18 13:18 Tylenol PO Q5HR PRN Pain Acetaminophen 500 mg 04/21/18 21:00 04/21/18 21:24 Tylenol PO 500 mg HS BRITTNI Administration Hydrocodone Bitart/Acetaminophen 1 tab 04/21/18 13:10 04/21/18 14:07 [place] 5/325 PO 1 tab Q6H PRN Administration Pain Hydrocodone Bitart/Acetaminophen 1 tab 04/21/18 15:23 [place] 5/325 PO Q6HR PRN Pain Aspirin 81 mg 04/22/18 09:00 04/22/18 11:02 Ecotrin PO 81 mg DAILY BRITTNI Administration Calcitonin [place] 1 spray 04/21/18 13:30 04/22/18 11:03 Miacalcin [place] NS 1 spray DAILY BRITTNI Administration Cetirizine HCl 10 mg 04/22/18 09:00 04/22/18 11:02 Zyrtec PO 10 mg DAILY BRITTNI Administration Fluticasone Propionate 1 spray 04/22/18 09:00 04/22/18 11:02 Flonase EA NOSTRIL 1 spray DAILY BRITTNI Administration Diltiazem HCl 125 mg/ Sodium 125 mls @ 15 mls/hr 04/21/18 10:15 04/21/18 22: 00 Chloride IV Infused .Q8H20M BRITTNI Infusion Protocol Metoclopramide HCl 10 mg 04/21/18 16:58 Reglan IVP Q6H PRN Metoprolol Tartrate 100 mg 04/21/18 17:30 04/21/18 17:45 Lopressor PO 100 mg BIDWM BRITTNI Administration Metoprolol Tartrate 5 mg 04/21/18 17:29 04/21/18 17:07 Lopressor IVP 5 mg Q6H PRN Administration Metoprolol Tartrate 5 mg 04/21/18 17:30 Lopressor IVP Q5MIN3 BRITTNI Morphine Sulfate 2 mg 04/21/18 16:58 Morphine Sulf 2 Mg Inj IVP Q3-4HR PRN Pain Nitroglycerin 0.4 mg 04/21/18 15:23 Nitrostat SL Q5MIN3 PRN Chest pain Olopatadine HCl 1 drop 04/21/18 15:23 Patanol EACH EYE PRN PRN PRN orders Omeprazole 20 mg 04/21/18 21:00 04/22/18 11:04 Prilosec PO 20 mg BID BRITTNI Administration Ondansetron HCl 4 mg 04/21/18 16:58 04/21/18 17:04 Zofran IVP 4 mg Q6H PRN Administration Nausea &/or vomiting Polyethylene Glycol 17 gm 04/22/18 10:45 Miralax PO DAILY [facility] Psyllium Hydrophilic Mucilloid 1 packet 04/21/18 21:00 04/21/18 21:24 Metamucil PO 1 packet HS BRITTNI Administration Rivaroxaban 20 mg 04/22/18 17:30 Xarelto PO WS BRITTNI Senna 17.2 mg 04/21/18 21:00 04/21/18 21:24 Senna Lax PO 17.2 mg HS BRITTNI Administration Sodium Chloride 10 - 80 ml 04/21/18 07:08 04/21/18 07:24 Iv Flush IVF 10 ml PRN PRN Administration Flushing Discontinued Medications Generic Name Dose Route Start Last Admin Trade Name Freq PRN Reason Stop Dose Admin Bisacodyl 10 mg 04/22/18 10:40 04/22/18 11:02 Dulcolax RECTALLY 04/22/18 10:41 10 mg O ONE Administration Diltiazem HCl 20 mg 04/21/18 07:08 04/21/18 07:25 Cardizem 25 Mg Inj IVP 04/21/18 07:09 20 mg O ONE Administration Diltiazem HCl 60 mg 04/21/18 08:33 04/21/18 08:42 Cardizem Sr 60 Mg (12 Hr) PO 04/21/18 08:34 60 mg O ONE Administration Fentanyl 50 mcg 04/21/18 07:08 04/21/18 10:29 Sublimaze IVP 04/21/18 07:09 Not Given ONCE ONE Fentanyl 50 mcg 04/21/18 07:45 04/21/18 07:39 Fentanyl IVP 04/21/18 07:46 50 mcg ONCE ONE Administration Sodium Chloride 1,000 mls @ 1,000 mls/hr 04/21/18 07:08 04/21/18 08:34 Normal Saline IV 04/21/18 08:07 Infused .Q1H ONE Infusion Sodium Chloride 500 mls @ 500 mls/hr 04/22/18 01:08 04/22/18 03:00 Normal Saline IV 04/22/18 02:07 Infused .Q1H ONE Infusion Metoclopramide HCl 10 mg 04/21/18 16:56 Reglan IVP Q6H PRN Metoprolol Tartrate 25 mg 04/21/18 21:00 Lopressor PO HS BRITTNI Metoprolol Tartrate 50 mg 04/22/18 09:00 Lopressor PO QAM BRITTNI Morphine Sulfate 2 mg 04/21/18 16:57 Morphine Sulf 2 Mg Inj IVP Q3-4HR PRN Pain Non-Formulary Medication 8 gm 04/21/18 21:00 Fiber PO HS BRITTNI Ondansetron HCl 4 mg 04/21/18 07:12 04/21/18 07:31 Zofran IVP 04/21/18 07:13 4 mg O ONE Administration Ondansetron HCl 4 mg 04/21/18 16:56 Zofran IVP Q6H PRN Nausea &/or vomiting Orphenadrine Citrate 60 mg 04/21/18 07:08 04/21/18 07:33 Norflex IV 04/21/18 07:09 60 mg O ONE Administration Oxycodone/Acetaminophen 1 tab 04/21/18 10:19 04/21/18 10:22 Percocet 5/325 PO 04/21/18 10:20 1 tab O ONE Administration Rivaroxaban 20 mg 04/22/18 17:30 Xarelto PO WS BRITTNI - Constitutional no acute distress, well nourished, well developed, cooperative - Routine HEENT Exam Head: Present: normocephalic, atraumatic Eye: Present: EOMI, PERRL ENT: Present: mucous membranes moist - Routine Neck Exam Present: supple, normal carotid upstroke, trachea midline. Absent: JVD, carotid bruit - Routine Chest/Breast/Axilla Exam Chest wall: Absent: tenderness - Routine Respiratory Exam Present: CTA bilaterally. Absent: accessory muscle use, dyspnea, rhonchi, stridor, wheezes, crackles - Routine Cardiovascular Exam Present: irregular rhythm. Absent: no murmur, JVD - Routine Abdominal Exam Present: soft, normoactive bowel sounds, non distended, non tender - Routine Extremities Exam Present: no edema, pulses intact, normal capillary refill. Absent: cyanosis, clubbing - Routine Skin Exam Present: intact, dry, warm. Absent: cyanosis, wounds, rash - Routine Neurological Exam Present: alert, oriented X3, CN II-XII intact, normal speech - Routine Psychiatric Exam Present: normal affect, cooperative Results 04/22/18 01:50 04/22/18 01:50 Cardiac Enzymes 04/21/18 04/21/18 04/22/18 Range/Units 07:15 21:30 01:50 Troponin I < 0.012 0.018 0.016 (0-0.12) ng/ml CBC 04/22/18 Range/Units 01:50 WBC 10.3 (4.5-11.0) T/MM3 RBC 4.45 L (4.50-5.90) M/MM3 Hgb 13.9 (13.5-17.5) GM/DL Hct 41.9 (41-53) % Plt Count 182 (130-400) T/MM3 Neut # (Auto) 8.5 H (1.8-7.7) T/MM3 Lymph # (Auto) 0.6 L (1-4.8) T/MM3 [place] # (Auto) 1.2 H (0-0.8) T/MM3 Eos # (Auto) 0.0 (0-0.5) T/MM3 Baso # (Auto) 0.0 (0-0.2) T/MM3 Comprehensive Metabolic Panel 04/22/18 Range/Units 01:50 Sodium 138 (136-146) MEQ/L Potassium 4.7 (3.6-5) MEQ/L Chloride 105 (98-107) MEQ/L Carbon Dioxide 25 (22-30) MEQ/L BUN 15.0 (9-20) MG/DL Creatinine 0.9 (0.8-1.5) mg/dL Glucose 115 H (75-110) MG/DL Calcium 8.2 L (8.4-10.2) MG/DL Intake and Output 04/21/18 04/22/18 04/22/18 22:59 06:59 14:59 Intake Total 1010 / 1010 500 / 500 Output Total 100 / 100 425 / 425 Balance 910 / 910 75 / 75 Intake: IV 90 / 90 500 / 500 DiltiaZEM Drip 125 mg In Ns 125 90 / 90 ml @ 15 mls/hr IV .Q8H20M BRITTNI Rx#:[id number] NS 500ml 500 ml @ 500 mls/hr IV 500 / 500 .Q1H ONE Rx#:[id number] Oral 920 / 920 Output: Urine 100 / 100 425 / 425 Other: Urine Appearance Clear Clear Urine Color Light Radha Light Radha Weight 78.4 kg Patient Weight 04/23/18 06:59 Weight 78.4 kg - Imaging and Cardiology Echo: report reviewed EKG results: report reviewed Imaging & Cardiology Narrative: 04/22/18 15:56 Echocardiogram Draft Patient: Rodney Turner MR#: [id number] : 1930 Age/Sex: 88 / M ADM Date: 04/21/18 Loc: [facility] DIS Date: = = = = = = = = = = = = = = = = = = = = = = = = = = = = = = = = = = = = = = = = = = = = = = = = = = = = = = = = = = = Date of Exam: 04/21/18 Type of Exam(s): US echo doppler complete DATE OF PROCEDURE April 21, 2018 This is a two-dimensional echo with spectral Doppler, color-flow and M-mode. It was obtained in a patient with atrial fibrillation. Left atrium is dilated. Left ventricular end-diastolic dimension is normal. Left ventricular wall thickness is normal. LV systolic function is normal with ejection fraction of about 60%. Right atrium is dilated. Right ventricle is normal. Aortic root dimension is normal. Mitral valve is morphologically normal with mild mitral regurgitation. Aortic valve shows fibrocalcific changes with no stenosis. Mild aortic insufficiency is present. Tricuspid valve shows moderate tricuspid regurgitation with moderate pulmonary hypertension with estimated pulmonary artery systolic pressure of 50. Pulmonary valve shows trace of pulmonary insufficiency. There is no pericardial effusion. IMPRESSION 1. Biatrial dilation. 2. Normal LV systolic function with ejection fraction of about 60%. 3. Mild mitral regurgitation. 4. Aortic sclerosis with mild aortic insufficiency. 5. Moderate tricuspid regurgitation with moderate pulmonary hypertension with estimated pulmonary artery systolic pressure of 50. 6. Trace of pulmonary insufficiency. 04/22/18 15:56 XRay Report Signed Patient: Rodney Turner MR#: [id number] : 1930 Age/Sex: 88 / M ADM Date: 04/21/18 Loc: ED DIS Date: = = = = = = = = = = = = = = = = = = = = = = = = = = = = = = = = = = = = = = = = = = = = = = = = = = = = = = = = = = = Date of Exam: 04/21/18 Ordering Provider: Ketan Lopez MD Type of Exam(s): XR chest 2V Reason for Exam(s): afib INDICATION: afib PROCEDURE: CHEST 2-VIEWS UPRIGHT (PA & LAT) Encounter: Initial COMPARISON: November 29, 2015 FINDINGS: Lungs are stable without focal consolidative pneumonia. No pneumothorax or effusion. 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 Pulmonary vascularity appears normal. Impression: Stable chest without focal pneumonia or congestive failure. . - EKG Interpretation EKG: no acute changes EKG shows: atrial fibrillation Assessment and Plan - Assessment and Plan (1) CAD (coronary artery disease) Status: Chronic (2) Hypertension Status: Chronic (3) Hyperlipidemia Status: Chronic (4) Atrial fibrillation with RVR Status: Acute - Assessment and Plan STABLE FOR DISCHARGE FROM CARDIOLOGY STANDPOINT FOLLOW UP WITH DR LOWERY IN 2-4 WEEKS Atrial Fibrillation with RVR -Currently well rate controlled -Will change metoprolol to 100 mg PO q am and 50 mg PO q HS, due to hypotensive episodes during the night -Chads-Vasc Score - 5 -Continue xarelto 20 mg daily -Continue to monitor on tele -TSH 0.87 -Echo: EF 60%, biatrial dilation, mild MR, aortic sclerosis, mod TR, mod pulm hypertension/PAP 50, trace PI CAD -Continue ASA and BB -No YOVANA or ARM d/t hypotension Hypertension -Blood pressure well controlled -Some episodes of hypotension in the night with SBP as low as 60 -Will change metoprolol tartrate to 100 mg in the am and 50 mg in the PM -Monitor Hyperlipidemia -Not on statin therapy -Managed per PCP History of PE -Continue anticoagulation with xarelto Thank you for the consult, we will continue to follow him with you. Hospital Course Summary Disclaimer: The visit summary below is not to be considered part of the above Progress Note. Hospital Course: 04/21/18 Admit to CCU for close monitoring and observation for his A. fib with RVR.. Consult Dr. Lowery for A. fib with RVR. Imaging studies including MRI and CT scans of the lumbar spine are reviewed. Pain control as needed for his back pain. Tylenol, [place], and calcitonin nasal spray for lumbar compression fracture pain. Bowel motivation ordered given narcotic usage. Dr. Lopez did discuss his case with radiology who confirmed that patient would not be a candidate for vertebroplasty at this time. Currently on a Cardizem drip. Further orders per cardiology regarding his A. fib with RVR. Xarelto for A. fib/DVT prophylaxis Patient requests DO NOT RESUSCITATE CODE STATUS PCP-Dr. Collins Patient's DPOA-H, Jonathan Turner, MOUNIKA-H, rec he be notified prior to a type of nonemergent intervention. <Florencio Lowery - Last Filed: 04/30/18 13:55> Exam Vital signs: Temperature 98.1 F 04/22/18 10:00 Pulse Rate 96 04/22/18 18:00 Respiratory Rate 18 04/22/18 18:00 Blood Pressure 136/88 04/22/18 18:00 Pulse Oximetry 97 04/22/18 18:00 Inpatient Medications: Discontinued Medications Generic Name Dose Route Start Last Admin Trade Name Freq PRN Reason Stop Dose Admin Acetaminophen 650 mg 04/21/18 13:18 Tylenol PO Q5HR PRN Pain Acetaminophen 500 mg 04/21/18 21:00 04/21/18 21:24 Tylenol PO 500 mg HS BRITTNI Administration Hydrocodone Bitart/Acetaminophen 1 tab 04/21/18 13:10 04/21/18 14:07 [place] 5/325 PO 1 tab Q6H PRN Administration Pain Hydrocodone Bitart/Acetaminophen 1 tab 04/21/18 15:23 [place] 5/325 PO Q6HR PRN Pain Aspirin 81 mg 04/22/18 09:00 04/22/18 11:02 Ecotrin PO 81 mg DAILY BRITTNI Administration Bisacodyl 10 mg 04/22/18 10:40 04/22/18 11:02 Dulcolax RECTALLY 04/22/18 10:41 10 mg O ONE Administration Calcitonin [place] 1 spray 04/21/18 13:30 04/22/18 11:03 Miacalcin [place] NS 1 spray DAILY BRITTNI Administration Cetirizine HCl 10 mg 04/22/18 09:00 04/22/18 11:02 Zyrtec PO 10 mg DAILY BRITTNI Administration Diltiazem HCl 20 mg 04/21/18 07:08 04/21/18 07:25 Cardizem 25 Mg Inj IVP 04/21/18 07:09 20 mg O ONE Administration Diltiazem HCl 60 mg 04/21/18 08:33 04/21/18 08:42 Cardizem Sr 60 Mg (12 Hr) PO 04/21/18 08:34 60 mg O ONE Administration Fentanyl 50 mcg 04/21/18 07:08 04/21/18 10:29 Sublimaze IVP 04/21/18 07:09 Not Given ONCE ONE Fentanyl 50 mcg 04/21/18 07:45 04/21/18 07:39 Fentanyl IVP 04/21/18 07:46 50 mcg ONCE ONE Administration Fluticasone Propionate 1 spray 04/22/18 09:00 04/22/18 11:02 Flonase EA NOSTRIL 1 spray DAILY BRITTNI Administration Sodium Chloride 1,000 mls @ 1,000 mls/hr 04/21/18 07:08 04/21/18 08:34 Normal Saline IV 04/21/18 08:07 Infused .Q1H ONE Infusion Diltiazem HCl 125 mg/ Sodium 125 mls @ 15 mls/hr 04/21/18 10:15 04/21/18 22: 00 Chloride IV Infused .Q8H20M [facility] Infusion Protocol Sodium Chloride 500 mls @ 500 mls/hr 04/22/18 01:08 04/22/18 03:00 Normal Saline IV 04/22/18 02:07 Infused .Q1H ONE Infusion Metoclopramide HCl 10 mg 04/21/18 16:56 Reglan IVP Q6H PRN Metoclopramide HCl 10 mg 04/21/18 16:58 Reglan IVP Q6H PRN Metoprolol Tartrate 25 mg 04/21/18 21:00 Lopressor PO HS BRITTNI Metoprolol Tartrate 50 mg 04/22/18 09:00 Lopressor PO QAM BRITTNI Metoprolol Tartrate 100 mg 04/21/18 17:30 04/21/18 17:45 Lopressor PO 100 mg BIDWM BRITTNI Administration Metoprolol Tartrate 5 mg 04/21/18 17:29 04/21/18 17:07 Lopressor IVP 5 mg Q6H PRN Administration Metoprolol Tartrate 5 mg 04/21/18 17:30 Lopressor IVP Q5MIN3 BRITTNI Metoprolol Tartrate 100 mg 04/23/18 08:00 Lopressor PO WB BRITTNI Metoprolol Tartrate 50 mg 04/22/18 21:00 Lopressor PO HS BRITTNI Morphine Sulfate 2 mg 04/21/18 16:57 Morphine Sulf 2 Mg Inj IVP Q3-4HR PRN Pain Morphine Sulfate 2 mg 04/21/18 16:58 Morphine Sulf 2 Mg Inj IVP Q3-4HR PRN Pain Nitroglycerin 0.4 mg 04/21/18 15:23 Nitrostat SL Q5MIN3 PRN Chest pain Non-Formulary Medication 8 gm 04/21/18 21:00 Fiber PO HS BRITTNI Olopatadine HCl 1 drop 04/21/18 15:23 Patanol EACH EYE PRN PRN PRN orders Omeprazole 20 mg 04/21/18 21:00 04/22/18 11:04 Prilosec PO 20 mg BID BRITTNI Administration Ondansetron HCl 4 mg 04/21/18 07:12 04/21/18 07:31 Zofran IVP 04/21/18 07:13 4 mg O ONE Administration Ondansetron HCl 4 mg 04/21/18 16:56 Zofran IVP Q6H PRN Nausea &/or vomiting Ondansetron HCl 4 mg 04/21/18 16:58 04/21/18 17:04 Zofran IVP 4 mg Q6H PRN Administration Nausea &/or vomiting Orphenadrine Citrate 60 mg 04/21/18 07:08 04/21/18 07:33 Norflex IV 04/21/18 07:09 60 mg O ONE Administration Oxycodone/Acetaminophen 1 tab 04/21/18 10:19 04/21/18 10:22 Percocet 5/325 PO 04/21/18 10:20 1 tab O ONE Administration Polyethylene Glycol 17 gm 04/22/18 10:45 04/22/18 18:54 Miralax PO 17 gm DAILY BRITTNI Administration Psyllium Hydrophilic Mucilloid 1 packet 04/21/18 21:00 04/21/18 21:24 Metamucil PO 1 packet HS BRITTNI Administration Rivaroxaban 20 mg 04/22/18 17:30 Xarelto PO WS BRITTNI Rivaroxaban 20 mg 04/22/18 17:30 Xarelto PO WS BRITTNI Senna 17.2 mg 04/21/18 21:00 04/21/18 21:24 Senna Lax PO 17.2 mg HS BRITTNI Administration Sodium Chloride 10 - 80 ml 04/21/18 07:08 04/21/18 07:24 Iv Flush IVF 10 ml PRN PRN Administration Flushing Results 04/22/18 01:50 04/22/18 01:50 Assessment and Plan - Assessment and Plan (1) CAD (coronary artery disease) Status: Chronic (2) Hypertension Status: Chronic (3) Hyperlipidemia Status: Chronic (4) Atrial fibrillation with RVR Status: Acute - Attestation Attestation Narrative: 04/30/18 13:55 Recommendation After examining the patient I agree with the above assessment. I am involved in the formulation of the patient's plan of care. Hospital Course Summary Disclaimer: The visit summary below is not to be considered part of the above Progress Note.
--- NOTE | 2018-04-22 16:32 | Progress Note ---
DATE OF CONSULTATION 04/22/2018 FINDINGS Mr. Turner was seen earlier this morning on rounds. He denied any element of abdominal pain. He states that he was feeling significantly better. He questions "why he had the pain". OBJECTIVE VITALS: Afebrile. Normotensive. Last recorded vitals include temperature 98.1 , pulse 94 and irregular. Respiratory rate 22, blood pressure 114/80, SaO2 94% on room air. HEENT: Normocephalic. Pupils are equally round and react to light and accommodation. CHEST: Clear to auscultation bilaterally. HEART: Irregularly irregular. No murmur auscultated. ABDOMEN: Palpation of the abdomen today revealed it to be soft and completely nontender. There was no evidence for guarding or tenderness. LABORATORY/RADIOGRAPHIC EVALUATION/REVIEW OF PATIENT'S CHART Patient did have a CT scan of his abdomen and pelvis obtained yesterday. I did review this CT scan last evening. The patient was not found to have any acute disease process seen. He was found to have small bilateral pleural effusions. 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 No evidence for bowel obstruction. He was found to have an intrathoracic stomach but no evidence for volvulus. ASSESSMENT 88-year-old gentleman with presentation of atrial fibrillation with rapid ventricular response who also had history for significant abdominal pain of uncertain etiology. Patient without an acute surgical process at this time. PLAN From a general surgical standpoint, I did not have a good explanation for his abdominal pain. I do see that he perhaps had some increased stool burden; he may benefit from a laxative. Would not recommend elective repair of his intrathoracic stomach/hiatal hernia nor his inguinal hernia given his associated medical comorbidities and advanced age. I would simply advance his diet as tolerated and if he is doing well from a general surgical standpoint, I do believe that he could be discharged at that time. NEIL
[2018-04-22] MEDS ORDERED: RIVAROXABAN 20 MG TABLET PO SCH ×2 (17:30)
--- NOTE | 2018-04-22 17:52 | Discharge Summary ---
Discharge Information Date of admission: 04/21/18 11:10 Anticipated date of discharge: 04/22/18 Attending Physician: Cyndi Aguirre MD Primary care physician: Param Collins MD Consults: 04/21/18 15:21 Physician Consult [CONS] Routine Consulting Provider: Florencio Gonzales Reason For Exam: afib with RVR Ordering Provider has Notified [employer] H[employer] Helper: Yes 04/21/18 16:26 Physician Consult [CONS] Routine Consulting Provider: Wilver Andrews Reason For Exam: abd pain, intrathoracic stomach and colon Ordering Provider has Notified [employer] H[employer] Helper: Yes - Discharge Diagnosis (1) Atrial fibrillation with RVR Status: Acute (2) Lumbar pain Status: Acute Problems Reviewed?: Yes A. 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 Coronary artery disease Hypertension-mild hypotension on the evening prior to discharge-resolved Hyperlipidemia History of PE Chronic anticoagulation with Xarelto Constipation-improved Chronic mild leg weakness and chronic mild numbness and tingling of the feet - Procedures Procedures: None - Laboratory Labs: 04/22/18 01:50 04/22/18 01:50 UA was essentially normal Laboratory Tests 04/21/18 04/21/18 04/21/18 07:15 07:15 21:30 Total Bilirubin 1.20 Icterus Index < 2 AST 24 ALT 17 Alkaline Phosphatase 186 H Troponin I < 0.012 0.018 Total Protein 6.3 Albumin 3.7 Globulin 2.6 Albumin/Globulin Ratio 1.4 TSH 04/22/18 04/22/18 01:50 01:50 Total Bilirubin Icterus Index AST ALT Alkaline Phosphatase Troponin I 0.016 Total Protein Albumin Globulin Albumin/Globulin Ratio TSH 0.87 - Radiology Radiology: 04/21/2018 CT abdomen and pelvis with oral and IV contrast Findings: Atelectasis in the lung bases with a small right effusion. 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 No definite evidence of volvulus. Heart is enlarged. Multiple liver cysts. Gallbladder is surgically absent. The spleen, pancreas and adrenal glands are within normal limits. Bilateral renal cysts are scattered arterial atherosclerotic plaque. Fat-containing left inguinal hernia extending into the scrotum. No evidence of a bowel obstruction. Bone windows show degenerative and postoperative changes in the spine. Chronic appearing T12, L1 and L2 mild compression fractures. Impression: Small pleural effusions, otherwise no acute disease process seen. 04/21/2018 CT lumbar spine FINDINGS: The alignment of the lumbar spine is stable. There are subtle superior endplate fractures of the L1 and L2 vertebra that have minimally worsened since the prior study. These are visible in retrospect as linear areas of edema on the fluid sensitive sequences of the prior MRI. There is very minimal height loss, less than 5%. There are pre-existing chronic inferior endplate deformities with multiple Schmorl's nodes seen at L1-L3. No additional acute fracture seen. Degenerative and postoperative changes in the posterior elements of L4-S1. Moderate degenerative disk and facet disease is better evaluated on the recent MRI studies. Impression: Minimal interval worsening in the existing L1 and L2 superior endplate fractures. 04/21/2018 echocardiogram IMPRESSION 1. Biatrial dilation. 2. Normal LV systolic function with ejection fraction of about 60%. 3. Mild mitral regurgitation. 4. Aortic sclerosis with mild aortic insufficiency. 5. Moderate tricuspid regurgitation with moderate pulmonary hypertension with estimated pulmonary artery systolic pressure of 50. 6. Trace of pulmonary insufficiency. History of Present Illness HPI: This is an 88-year-old pt of Dr. Clolins who presented to ER with c/o of back pain. Back pain began approximately 3 weeks ago when he fell. He did see his primary care provider, had a CT and an MRI ordered but has not heard results of this testing. Dr Lopez reviewed the results with the patient in the ER. ( MRI: Enhancement within the 8 mm intradural extramedullary lesion at the L2 level. Differential considerations include myxopapillary ependymoma, schwannoma, meningioma and less likely drop metastasis.) This morning he presents because his back is hurting, woke him out of a deep sleep. Rates it at 7 out of 10. He is currently taking Shafter. He states he hasn 't taken any medications this morning. He is averaging approximately 3 Shafter a day for his pain. Incidentally on initial eval in the ER, pt was found to be in atrial fibrillation with RVR. He does have a history of atrial fibrillation. He takes metoprolol for rate control. He has not missed any doses. No acute shortness of breath or chest pain. Is on Xarelto. Objective Vital signs: Temperature 98.1 F 04/22/18 10:00 Pulse Rate 107 H 04/22/18 16:16 Respiratory Rate 15 04/22/18 16:16 Blood Pressure 141/105 H 04/22/18 16:16 Pulse Oximetry 95 04/22/18 16:00 Height/Weight/BMI: Height 1.8 m Weight 78.4 kg Body Mass Index 24.0 Comments: The patient is alert and oriented and in no acute distress. Chest is clear to auscultation. Cardiovascular reveals an irregularly irregular rhythm with a well -controlled rate. Abdomen is soft and nontender with positive bowel sounds. Extremities are free of edema. Hospital Course This is a general summary of the patient's hospital course. For more details refer to the complete medical record. Hospital course: The patient was admitted to observation status on 04/21/2018 with A. fib with RVR, severe low back pain, and severe abdominal pain. He underwent CT of the lumbar spine. Results of recent MRI lumbar spine were also reviewed with the patient. CT lumbar spine did not show any concerning findings. The patient had chronic mild leg weakness and chronic mild numbness and tingling of the feet. These symptoms have been unchanged for 2 years. He denied any radicular pain. The patient was also noted on admission to have severe abdominal pain. Chest x- ray showed intrathoracic stomach and intrathoracic colon. CT abdomen and pelvis with and without contrast were obtained and Dr. Andrews was consulted regarding the patient's abdominal pain. The patient's anticoagulation was held on the night of admission due to severe abdominal pain. Dr. Andrews did see and evaluate the patient and did not feel that he had a surgical abdomen at that time. Dr. Gonzales was consulted regarding the patient's A. fib with RVR. The patient was placed on Cardizem drip, but this did not improve his heart rate. The patient's metoprolol was then increased and he was given 100 mg of metoprolol orally. This did resolve his tachycardic rate but blood pressure was low intermittently through the evening. The following morning, heart rate and blood pressure were improved. Dr. Gonzales did recommend increasing the patient's metoprolol to 100 mg in the morning and 50 mg in the evening. Fortunately, on the day after admission, the patient's back pain and abdominal pain had resolved. The patient was started on a regular diet which he has tolerated well today. The patient's anticoagulation was restarted. Dr. Andrews did not recommend elective repair of his intrathoracic stomach/ hiatal hernia nor his inguinal hernia given his associated medical comorbidities and advanced age. The patient did have constipation which improved with Dulcolax suppository. He will be discharged on MiraLAX. The patient is to follow-up with Dr. Gonzales in 2-4 weeks. CODE STATUS was discussed with the patient and his son, the patient wants to be a full code. Time spent with patient: discharge greater than 30 minutes Resuscitation Status: Full Code Discharge Plan - Discharge Disposition Discharge Date: 04/22/18 Disposition: 01 Discharged Home, Self-Care *Condition: Stable Reason For Visit (Visit label in EMR): AFib with RVR - Discharge Medications *Discharge Medications: New Metoprolol Tartrate [Lopressor] 50 mg PO HS tab PEG 3350 17gm PACKET [Miralax] 17 gm PO DAILY packet Metoprolol Tartrate [Lopressor] 100 mg PO WB tab Continue Aspirin [Adult Aspirin] 81 mg PO DAILY Acetaminophen [Acetaminophen Extra Strength] 500 mg PO HS Amcinonide 1 applicatio TP DAILY PRN PRN Reason: Prn Orders Nitroglycerin 0.4 mg PO Q5MIN3 PRN PRN Reason: Chest Pain EPINEPHrine Pen [Epipen] 0.3 mg IM PRN PRN PRN Reason: Allergic Reaction Fluticasone Nasal Wittmann [Flonase] 1 spray EA NOSTRIL DAILY Cetirizine HCl [Zyrtec] 10 mg PO DAILY Rivaroxaban [Xarelto] 20 mg PO DAILY Omeprazole [Prilosec] 20 mg PO BID Lutein 5 mg PO BID Olopatadine 0.1% Eye Drops-Bid [Patanol] 1 drop EACH EYE PRN PRN PRN Reason: Prn Orders Fiber 8 gm PO HS Hydrocodone/APAP 5/325 [Shafter 5/325] 1 tab PO Q6HR PRN #10 tab PRN Reason: Pain Discontinued Metoprolol Tartrate 25 mg PO HS Metoprolol Tartrate 50 mg PO QAM - Discharge Packet/Instructions *Diet: Diet as tolerated *Activity: Light activity as tolerated *Pain Management/Treatment: Tylenol or Shafter/hydrocodone as needed for pain. No driving if your taking Shafter/hydrocodone *Wound Care: Not applicable Additional Instructions: #1 Your metoprolol was increased. This will help keep your heart rate under control. This may also decrease her blood pressure. You should get up very slowly from your bed or your chair and stand for several moments to make sure you are not lightheaded. #2 You can increase the MiraLAX to twice a day if you are still constipated, or you can decrease the MiraLAX to every other day if you're stools are too loose *Expected Signs/Symptoms: Mild fatigue. Shafter/hydrocodone can cause constipation. Increase MiraLAX if needed for constipation *Notify Physician if: Notify your physician if you feel lightheaded, have a fast heart rate, have chest pain, have worsening abdominal or back pain not controlled with Shafter, or if you have any other concerning symptoms. *During Business Hours Contact: Call your physician's office *After Business Hours Contact: Called [facility] at [phone] and have your physician paged *Pending Lab/Results: No Pending Lab - Referrals/Follow Up *Referrals/Follow Up: Param Collins MD [Primary Care Provider] - 1 Week Florencio Gonzales MD [Physician] - 2 Weeks - Patient Handouts - Dismissal Complete Discharge Instructions are:: Complete Physician Narrative - Narrative Attestation Narrative: Date: 04/22/18 Time: 1746
[2018-04-22 19:17] VITALS: BP 136/88; PULSE 96; RESP 18; O2SAT 97
== END 2018-04-22 19:10 | disposition home or self-care (01) ==
LOC: EDHOLD 06:35 → ED 06:35 → CCU 11:29
PROVIDERS: ADMIT Internal Medicine; ATTEND Internal Medicine